=== PATIENT | female | born 1945 | race Hispanic/Latino ===

== ENCOUNTER 2017-09-14 11:42 | Emergency (ER) | payer MEDICARE ==
[~2017-09-14 11:42] MED LIST: ASPI-1181 PO; HUM10VIA6 SQ; INSU100I21 SQ; LOSA50TA37 PO; METO25PO2 MC; SIMV20TA6 PO
[2017-09-14] MEDS ORDERED: NITROGLYCERIN 1GM/1 INCH PACKET TD ONE (13:45)
[2017-09-14 14:16] LABS: BASOPHILS % (AUTO) 0.5 % (0.0-5.0); EOSINOPHILS % (AUTO) 2.5 % (0.0-8.0); HEMATOCRIT 35.6 % (36-48); LYMPHOCYTES % (AUTO) 42.7 % (21.0-51.0); MEAN CORPUSCULAR HEMOGLOBIN 28.6 pg (27.0-33.0); MEAN CORPUSCULAR HGB CONC 34.2 g/dL (32.0-36.0); MEAN CORPUSCULAR VOLUME 83.6 fL (79-99); NEUTROPHILS % (AUTO) 39.3 % (40.0-77.0); NUCLEATED RED BLOOD CELLS 0.1 % (0.0-0.19); PLATELET COUNT (AUTO) 190 K/uL (130-400); RED BLOOD CELL COUNT(AUTO) 4.26 MIL/uL (4.00-5.50); RED CELL DISTRIBUTION WIDTH 15.3 % (11.0-15.5); WHITE BLOOD COUNT (AUTO) 6.9 K/uL (4.8-10.8)
[2017-09-14 14:23] LABS: CREATININE 0.9 mg/dL (0.5-1.5); POTASSIUM 4.1 mmol/L (3.5-5.1)
[2017-09-14] MEDS ORDERED: IOPAMIDOL-370 100 ML VIAL IV ONE ×2 (15:41→15:54)
== END 2017-09-14 18:56 | disposition home or self-care (01) ==
LOC: EDH 11:42
DX: K44.9 Diaphragmatic hernia without obstruction or gangrene (principal); I10 Essential (primary) hypertension; E78.5 Hyperlipidemia, unspecified; E11.9 Type 2 diabetes mellitus without complications; M81.0 Age-related osteoporosis without current pathological fracture; Z85.528 Personal history of other malignant neoplasm of kidney; Z79.82 Long term (current) use of aspirin
CPT/HCPCS: 36415; 71250; 80048; 82948; 85025; 93005; 99291; Q9967 ×2

== ENCOUNTER → 2019-06-26 | Outpatient (CLI) | payer MEDICARE ==
[~2019-06-26] MED LIST changes: -LOSA50TA37 PO; +LOSA50TA64 PO; +SIMV-43 PO; -SIMV20TA6 PO
== END | disposition home or self-care (01) ==
LOC: SHCH 08:25
PROVIDERS: ATTEND Internal Medicine Cardiovascular Disease
DX: I35.8 Other nonrheumatic aortic valve disorders (principal)
CPT/HCPCS: 93306

== ENCOUNTER → 2021-06-22 | Outpatient (CLI) | payer MEDICARE ==
[~2021-06-22] MED LIST changes: -ASPI-1181 PO; +ASPI-1443 PO
== END | disposition home or self-care (01) ==
LOC: RAH 08:19
PROVIDERS: ATTEND Internal Medicine Gastroenterology
DX: K44.9 Diaphragmatic hernia without obstruction or gangrene (principal); K21.00 Gastro-esophageal reflux disease with esophagitis, without bleeding
CPT/HCPCS: 74240

== ENCOUNTER 2021-10-06 08:00 | Observation (INO) | payer MEDICARE ==
[~2021-10-06] VITALS: Ht 157.5 cm; Wt 66.7 kg
[2021-10-08 11:33] LABS: BASOPHILS % (AUTO) 0.5 % (0.0-5.0); EOSINOPHILS % (AUTO) 2.1 % (0.0-8.0); HEMATOCRIT 41.7 % (36-48); LYMPHOCYTES % (AUTO) 36.6 % (21.0-51.0); MEAN CORPUSCULAR HEMOGLOBIN 25.1 pg (27.0-33.0); MEAN CORPUSCULAR VOLUME 83.7 fL (79-99); NEUTROPHILS % (AUTO) 51.5 % (40.0-77.0); PLATELET COUNT (AUTO) 281 K/uL (130-400); RED BLOOD CELL COUNT(AUTO) 4.98 MIL/uL (4.00-5.50); WHITE BLOOD COUNT (AUTO) 6.6 K/uL (4.8-10.8)
[2021-10-08 11:37] LABS: INR 0.94 (0.85-1.15); PROTHROMBIN TIME 10.3 SEC (9.6-11.6)
[2021-10-08 11:38] LABS: PARTIAL THROMBOPLASTIN TIME 26.8 SEC (26.3-35.5)
[2021-10-08 11:48] LABS: BILIRUBIN,TOTAL 0.2 mg/dL (0.2-1.0); CREATININE 0.9 mg/dL (0.5-1.5); TOTAL PROTEIN, SERUM 8.8 g/dL (6.0-8.3)
[2021-10-12] MEDS ORDERED: PANT40TA54 PO (13:57)
[2021-10-12] MEDS ORDERED: INSU100V37 SQ (13:57)
[2021-10-12] MEDS ORDERED: LISI20TA24 PO (13:57)
[2021-10-12] MEDS ORDERED: INSU100C6 SQ (13:57)
[2021-10-12] MEDS ORDERED: METO-391 PO (13:57)
[2021-10-12] MEDS ORDERED: ACET-2027 PO (13:57)
[2021-10-12] MEDS ORDERED: LOSA50TA64 PO (13:57)
[2021-10-12] MEDS ORDERED: LINA145C PO (13:57)
[2021-10-12] MEDS ORDERED: DAPA10TA PO (13:57)
[2021-10-13] VITALS (17 sets, daily range): BP systolic 136–169; BP diastolic 55–81
[2021-10-13] MEDS ORDERED: 0.9%NACL 1000ML 1,000 ML IV ONE (06:21)
[2021-10-13] MEDS ORDERED: LIDOCAINE PF 100MG/5ML (2%) SYRINGE 5ML ONE (07:20)
[2021-10-13] MEDS ORDERED: PROPOFOL 10 MG/ML 20ML VIAL IV ONE ×2 (07:20→08:08)
[2021-10-13] MEDS ORDERED: FENTANYL CITRATE PF 50 MCG/1 ML 5ML AMP IV ONE (07:21)
[2021-10-13] MEDS ORDERED: ONDANSETRON 4MG INJ ONE (07:21)
[2021-10-13] MEDS ORDERED: MIDAZOLAM HCL 1 MG/ML 2ML VIAL ONE (07:21)
[2021-10-13] MEDS ORDERED: ROCURONIUM 10MG/1ML SYR 10 MG/ML ML ONE ×2 (07:21→08:48)
[2021-10-13] MEDS ORDERED: LACTATED RINGERS 1000ML 1,000 ML IV SCH ×2 (08:00→10:30)
[2021-10-13] MEDS ORDERED: CEFAZOLIN SODIUM 1 GM VIAL IVP ONE (08:00)
[2021-10-13] MEDS ORDERED: DEXAMETHASONE SOD PHOSPHATE 10MG/ML 1ML VIAL ONE (08:15)
[2021-10-13] MEDS ORDERED: MEPERIDINE-PF 25 MG/ML SYG ONE ×2 (08:24→10:36)
[2021-10-13] MEDS ORDERED: NEOSTIGMINE 5MG/5ML SYR IV ONE (10:01)
[2021-10-13] MEDS ORDERED: GLYCOPYRROLATE 1 MG/5 ML SYRINGE ONE (10:01)
[2021-10-13] MEDS ORDERED: BUPIVACAINE/PF 0.25% 30ML VIAL IJ ONE (10:04)
[2021-10-13] MEDS ORDERED: HYDROCODONE/ACETAMINOPHEN 5/325 MG TAB PO PRN (10:30)
[2021-10-13] MEDS ORDERED: HYDROMORPHONE 1 MG INJ IV PRN (10:30)
[2021-10-13] MEDS ORDERED: ONDANSETRON 4MG INJ IVP PRN (10:30)
[2021-10-13] MEDS ORDERED: [UNRECOGNIZED DRUG - OTHER] PO PRN (18:00)
[2021-10-13] MEDS: INSULIN LISPRO 100 UNIT/ML 3ML SQ SCH (21:00)
[2021-10-13] MEDS: FAMOTIDINE 20MG VIAL IV SCH (21:23)
[2021-10-14] VITALS: BP 129/81
[2021-10-14 04:00] VITALS: BP 126/79
[2021-10-14 08:00] VITALS: BP 153/73
[2021-10-14] MEDS: INSULIN LISPRO 100 UNIT/ML 3ML SQ SCH (09:00)
[2021-10-14] MEDS ORDERED: LOSARTAN 50 MG TABLET PO SCH (09:00)
[2021-10-14] MEDS ORDERED: **HM**(Dapagliflozin Propanediol (Farxiga) 10 MG PO SCH (09:00)
[2021-10-14] MEDS ORDERED: METOPROLOL SUCCINATE 50 MG TAB.SR.24H PO SCH (09:00)
[2021-10-14] MEDS ORDERED: PANTOPRAZOLE 40 MG TAB DR PO SCH (09:00)
[2021-10-14] MEDS ORDERED: ENOXAPARIN SODIUM 30 MG/0.3 ML SQ SCH (09:00)
[2021-10-14] MEDS ORDERED: **HM**(Linaclotide (Linzess) 145 MCG PO SCH (09:00)
[2021-10-14] MEDS: FAMOTIDINE 20MG VIAL IV SCH (09:00)
[2021-10-14] MEDS ORDERED: LISINOPRIL 20 MG TABLET PO SCH (09:00)
[2021-10-14] MEDS ORDERED: INSULIN DEGLUDEC 18 UNIT SQ SCH (09:00)
[2021-10-14 12:00] VITALS: BP 140/69
[2021-10-14 16:00] VITALS: BP 127/60
[2021-10-14 19:40] VITALS: BP 150/68
== END 2021-10-14 20:30 ==
LOC: EDSTATUS 10-07 10:00 → DAHIP 10-13 05:39 → INTOOBSV 10-13 05:39 → 3CH 10-13 11:52
PROVIDERS: ADMIT Surgery; ATTEND Surgery
DX: K44.0 Diaphragmatic hernia with obstruction, without gangrene (principal); Z20.822 Contact with and (suspected) exposure to COVID-19; K21.00 Gastro-esophageal reflux disease with esophagitis, without bleeding; K66.0 Peritoneal adhesions (postprocedural) (postinfection); E11.9 Type 2 diabetes mellitus without complications; M79.7 Fibromyalgia; M81.0 Age-related osteoporosis without current pathological fracture; I10 Essential (primary) hypertension; F41.8 Other specified anxiety disorders; Z90.710 Acquired absence of both cervix and uterus; Z85.528 Personal history of other malignant neoplasm of kidney; Z90.5 Acquired absence of kidney; Z79.899 Other long term (current) drug therapy
CPT/HCPCS: 36415 ×2; 43235; 43281; 43659; 80053; 82948 ×5; 85025; 85610; 85730; 86850 ×2; 86900 ×2; 86901 ×2; 87635; 93005; 96372; 96374; 97039 ×3; 97116; 97161; A4215 ×2; A4221; A4222; A4223; A4600; A4649; A4663; A4930; G0168; G0378 ×32; G0379; J0690; J1100; J1650 ×2; J2001; J2175 ×2; J2250; J2405; J2704 ×2; J2710; J3010; J3490 ×4; J7030 ×2; J7120 ×2

== ENCOUNTER → 2023-02-22 | Outpatient (CLI) | payer OTHER, MEDICARE ==
[~2023-02-22] MED LIST changes: +ACET-2027 PO; -ASPI-1443 PO; +DAPA10TA PO; -HUM10VIA6 SQ; +INSU100C6 SQ; -INSU100I21 SQ; +INSU100V37 SQ; +LISI20TA24 PO; +METO-391 PO; -METO25PO2 MC; +PANT40TA54 PO; -SIMV-43 PO
[2023-02-22 12:59] LABS: CREATININE 0.9 mg/dL (0.5-1.5); POTASSIUM 4.5 mmol/L (3.5-5.1)
== END | disposition home or self-care (01) ==
LOC: LAB 10:51
PROVIDERS: ATTEND Internal Medicine Cardiovascular Disease
DX: R06.00 Dyspnea, unspecified (principal)
CPT/HCPCS: 36415; 80048; 83735; 83880

== ENCOUNTER → 2023-03-24 | Outpatient (CLI) | payer OTHER, MEDICARE | END | disposition home or self-care (01) | LOC: SHCH 07:30 | PROVIDERS: ATTEND Internal Medicine Cardiovascular Disease | DX: I11.9 Hypertensive heart disease without heart failure (principal); I35.1 Nonrheumatic aortic (valve) insufficiency; E78.5 Hyperlipidemia, unspecified; E11.9 Type 2 diabetes mellitus without complications | CPT/HCPCS: 93306 ==

== ENCOUNTER → 2023-04-03 | Outpatient (CLI) | payer OTHER | END | disposition home or self-care (01) | LOC: RAH 07:55 | PROVIDERS: ATTEND Internal Medicine Cardiovascular Disease | DX: Z13.6 Encounter for screening for cardiovascular disorders (principal) | CPT/HCPCS: 75571 ==

== ENCOUNTER → 2023-05-29 | Outpatient (CLI) | payer OTHER, MEDICARE | END | disposition home or self-care (01) | LOC: RAH 10:00 | PROVIDERS: ATTEND Internal Medicine | DX: M25.552 Pain in left hip (principal) | CPT/HCPCS: 73502 ==

== ENCOUNTER → 2024-02-06 | Outpatient (CLI) | payer OTHER, MEDICARE | END | disposition home or self-care (01) | LOC: RAH 10:04 | PROVIDERS: ATTEND Internal Medicine | DX: M47.22 Other spondylosis with radiculopathy, cervical region (principal); K44.9 Diaphragmatic hernia without obstruction or gangrene; R06.02 Shortness of breath | CPT/HCPCS: 71046; 72040 ==

== ENCOUNTER → 2024-07-02 | Outpatient (CLI) | payer OTHER, MEDICARE ==
--- NOTE | 2024-07-02 11:18 | HMCIMG ---
KNEE/PATELLA 1-2VWS LT HISTORY: Osteoarthritis of left knee COMPARISON: None TECHNIQUE: 2 images of left knee were obtained. FINDINGS: There is no acute displaced fracture or dislocation. There is soft tissue swelling. Vascular calcifications are seen. Degenerative changes are seen. IMPRESSION: 1. Findings as described above.
--- NOTE | 2024-07-02 11:19 | HMCIMG ---
KNEE/PATELLA 1-2VWS RT HISTORY: Osteoarthritis COMPARISON: None TECHNIQUE: 2 images of right knee were obtained. FINDINGS: There is no acute displaced fracture or dislocation. Degenerative changes are seen. IMPRESSION: 1. Findings as described above.
== END | disposition home or self-care (01) ==
LOC: OIH 09:46
PROVIDERS: ATTEND Internal Medicine
DX: M17.0 Bilateral primary osteoarthritis of knee (principal); M79.89 Other specified soft tissue disorders
CPT/HCPCS: 73560